=== PATIENT | male | born 1995 | race Two or more races ===

== ENCOUNTER 2019-11-10 22:19 | Emergency (ER) | payer SELFPAY ==
[~2019-11-10] VITALS: Ht 182.9 cm; Wt 114.3 kg
[2019-11-10 22:48] VITALS: BP 145/96
== END 2019-11-11 01:55 | disposition home or self-care (01) ==
LOC: ER 22:24
DX: J30.9 Allergic rhinitis, unspecified (principal); R09.82 Postnasal drip